=== PATIENT | male | born 1985 | race African-American/Black ===

== ENCOUNTER 2018-04-01 20:26 | Emergency (ER) | payer OTHER ==
[~2018-04-01] VITALS: Ht 177.8 cm; Wt 93.0 kg
[~2018-04-01 20:26] MED LIST: NO MEDS
[2018-04-01 20:38] VITALS: BP 130/90
--- NOTE | 2018-04-01 20:40 | NUR ---
TO LOBBY A/W BED, IFEOMA HANSEN NOTED
[2018-04-01 20:42] VITALS: BP 130/90
--- NOTE | 2018-04-01 23:20 | NUR ---
PATIENT LEFT WITHOUT BEING SEEN BY DR. BROOKS. NO FURTHER CARE PROVIDED FOR PATIENT.
== END 2018-04-01 23:20 | disposition left against medical advice (07) ==
LOC: MED 20:26
DX: M25.572 Pain in left ankle and joints of left foot (principal); Z53.21 Procedure and treatment not carried out due to patient leaving prior to being seen by health care provider

== ENCOUNTER 2019-01-19 22:10 | Emergency (ER) | payer OTHER ==
[~2019-01-19] VITALS: Ht 180.3 cm; Wt 93.0 kg
[2019-01-19 22:29] VITALS: BP 120/76
--- NOTE | 2019-01-19 23:55 | NUR ---
PT AMBULATED TO ER BED 02
--- NOTE | 2019-01-19 23:59 | NUR ---
33/M PRESENTS TO ED, C/O PAIN ON BASE OF L THUMB, 3 HRS AGO S/P HAVING SOMEONE PUSHED INTO HIS L THUMB WHILE PLAYING FOOTBALL. BASE OF L THUMB ON PALMAR SIDE WITH MILD SWELLING, TENDER TO TOUCH; NO DEFORMITY OR BRUISING NOTED ON L THUMB. CAP REFILL<3S, +SENSATION, DECREASED ROM DUE TO PAIN. PT AWAKE AND ALERT, RR EVEN AND UNLABORED. DENIES MED HX OR RX. OTC TYLENOL AT 1800 FOR HEADACHE THAT HAS RESOLVED
[2019-01-20 01:20] VITALS: BP 118/75
== END 2019-01-20 01:20 | disposition home or self-care (01) ==
LOC: MED 22:10
DX: S63.601A Unspecified sprain of right thumb, initial encounter (principal); J45.909 Unspecified asthma, uncomplicated; X58.XXXA Exposure to other specified factors, initial encounter; Y93.61 Activity, american tackle football; Y92.89 Other specified places as the place of occurrence of the external cause; Y99.8 Other external cause status
CPT/HCPCS: 73140; 99283